=== PATIENT | female | born 1935 | race Hispanic/Latino ===

== ENCOUNTER 2018-07-30 09:53 | Inpatient (IN) | payer MEDICARE ==
[2018-07-30 10:17] VITALS: BMI 34.3
[2018-07-30] MEDS ORDERED: Enoxaparin 100 mg Syringe SC STA (10:20)
[2018-07-30] MEDS ORDERED: Nitroglycerin 2% Ointment Foilpak UD TOP STA (10:22)
--- NOTE | 2018-07-30 10:23 | ED PDOC ---
Arrival/HPI - General Time Seen by Provider: 07/30/18 10:11 Historian: Patient - History of Present Illness Narrative History of Present Illness (Text): 07/30/18 10:20 83 year old female, whose past medical history includes hypertension on amlodipine and aspirin, who presents to the Emergency department complaining of chest pain and mild shortness of breath x 1 day. Patient notes the chest pain has been steady since yesterday. Patient denies any back pain, dizziness, headache, diaphoresis, nausea, vomiting, diarrhea, or any other complaints. Time/Duration: Other (less than 1 day) Symptom Onset: Gradual Symptom Course: Unchanged Activities at Onset: Light Context: Home Associated Symptoms (Text): 07/30/18 11:38 Left-sided chest pain since last evening. Mild dyspnea. No diaphoresis. No nausea or vomiting. No dizziness or lightheadedness. She does not feel palpitations. No history of atrial fibrillation. Past Medical History - Provider Review Nursing Documentation Reviewed: Yes Family/Social History - Physician Review Nursing Documentation Reviewed: Yes Family/Social History: Unknown Family HX Smoking Status: Never Smoked Hx Alcohol Use: No Allergies/Home Meds Allergies/Adverse Reactions: Allergies No Known Allergies Allergy (Verified 02/02/15 13:55) Home Medications: Home Meds Medication Instructions Recorded Confirmed Aspirin 81 mg PO DAILY 02/02/15 02/02/15 amLODIPine [Norvasc] 2.5 mg PO DAILY 02/02/15 02/02/15 Review of Systems - Physician Review All systems were reviewed & negative as marked: Yes - Review of Systems Constitutional: Fatigue. absent: Fevers Respiratory: SOB. absent: Cough, Sputum, Wheezing Cardiovascular: Chest Pain. absent: Palpitations, Syncope Gastrointestinal: absent: Abdominal Pain, Diarrhea, Nausea, Vomiting Neurological: absent: Headache, Dizziness, Focal Weakness Endocrine: absent: Diaphoresis Physical Exam Vital Signs Reviewed: Yes Vital Signs Temp Pulse Resp BP Pulse Ox 07/30/18 10:16 98.8 F 100 H 18 149/82 95 Temperature: Afebrile Blood Pressure: Normal Pulse: Irregular Respiratory Rate: Normal Appearance: Positive for: Well-Appearing, Non-Toxic, Comfortable Pain Distress: None Mental Status: Positive for: Alert and Oriented X 3 - Systems Exam Head: Present: Atraumatic, Normocephalic Pupils: Present: PERRL Extroacular Muscles: Present: EOMI Conjunctiva: Present: Normal Mouth: Present: Moist Mucous Membranes Pharnyx: No: ERYTHEMA, EXUDATE, TONSILS ENLARGED Neck: Present: Normal Range of Motion Respiratory/Chest: Present: Clear to Auscultation, Good Air Exchange. No: Respiratory Distress Cardiovascular: Present: Irregular Rhythm (irregularly regular), Tachycardic Abdomen: No: Tenderness, Distention, Rebound, Guarding Upper Extremity: Present: Normal Inspection. No: Cyanosis, Edema Lower Extremity: Present: Normal Inspection. No: Edema Neurological: Present: GCS=15, CN II-XII Intact, Speech Normal, Motor Func Grossly Intact Skin: Present: Warm, Dry, Normal Color. No: Rashes Psychiatric: Present: Alert, Oriented x 3, Normal Insight, Normal Concentration Medical Decision Making ED Course and Treatment: 07/30/18 10:25 Impression: 83 year old female presents to the emergency department complaining of chest painand shortness of breath x yesterday. Plan: -- EKG -- Labs -- Cardiac ISO -- CXR -- Lovenox -- Ngl -- reassess and disposition -- Reassess and disposition Progress Notes: 07/30/18 11:02 CXR reviewed, shows: Impression: No Active Disease. 07/30/18 11:40 EKG shows atrial fibrillation rate approximately [address] and T- wave changes. 07/30/18 11:[address] Alcazar, who accepts admission to telemetry observation. 07/30/18 12:18 Case discussed with Josh Ravi, who will see pt in consult. - Scribe Statement The provider has reviewed the documentation as recorded by the Scribviolet Bowser All medical record entries made by the Scribe were at my direction and personally dictated by me. I have reviewed the chart and agree that the record accurately reflects my personal performance of the history, physical exam, medical decision making, and the department course for this patient. I have also personally directed, reviewed, and agree with the discharge instructions and disposition. Disposition/Present on Arrival - Present on Arrival Any Indicators Present on Arrival: No History of DVT/PE: No History of Uncontrolled Diabetes: No Urinary Catheter: No History of Decub. Ulcer: No - Disposition Have Diagnosis and Disposition been Completed?: Yes Diagnosis: Chest pain, Atrial fibrillation, Dyspnea Disposition: HOSPITALIZED Disposition Time: 11:41 Patient Plan: Observation, Telemetry Patient Problems: Current Active Problems Problem Status Onset Atrial fibrillation Acute Chest pain Acute Dyspnea Acute Condition: FAIR
[2018-07-30 10:50] LABS: BASO # 0.02 K/mm3 (0.0-2.0); BASO % 0.2 % (0.0-3.0); EOS # 0.1 (0.0-0.7); GRAN # 8.04 (1.4-6.5); GRAN % 70.1 % (50.0-68.0); HEMOGLOBIN 14.5 g/dL (12.0-16.0); LYMPH # 2.7 (1.2-3.4); LYMPH % 23.2 % (22.0-35.0); MEAN CORPUSCULAR HEMOGLOBIN 30.5 pg (25.0-35.0); MEAN CORPUSCULAR HGB CONC 33.1 g/dl (31.0-37.0); MEAN PLATELET VOLUME 9.2 fl (7.0-11.0); MONO # 0.6 (0.1-0.6); MONO % 5.5 % (1.0-6.0); RBC 4.76 10^6/uL (3.5-6.1); RED CELL DISTRIBUTION WIDTH 13.7 % (11.5-14.5); WHITE BLOOD COUNT 11.5 10^3/uL (4.5-11.0)
--- NOTE | 2018-07-30 10:55 | RAD ---
Date of service: 07/30/2018 HISTORY: cp COMPARISON: No prior. FINDINGS: LUNGS: No active pulmonary disease. PLEURA: No significant pleural effusion identified, no pneumothorax apparent. CARDIOVASCULAR: No aortic atherosclerotic calcification present. Mild cardiomegaly no pulmonary vascular congestion. OSSEOUS STRUCTURES: No significant abnormalities. VISUALIZED UPPER ABDOMEN: Normal. OTHER FINDINGS: None. IMPRESSION: No active disease.
[2018-07-30 10:59] LABS: INR 1.01; PARTIAL THROMBOPLASTIN TIME 29.5 Seconds (25.1-36.5); PROTHROMBIN TIME 11.6 SECONDS (9.4-12.5)
[2018-07-30 11:03] LABS: ALB/GLOB RATIO 1.5 (1.1-1.8); ALBUMIN 4.3 g/dL (3.0-4.8); ALT/SGPT 42 U/L (7-56); AST/SGOT 33 U/L (14-36); BLOOD UREA NITROGEN 10 mg/dL (7-21); CALCIUM 9.4 mg/dL (8.4-10.5); GFR NON-AFRICAN AMERICAN > 60
[2018-07-30 11:15] LABS: B-TYPE NATRIURETIC PEPTIDE 433 pg/mL (0-450); TROPONIN I < 0.01 ng/mL
--- NOTE | 2018-07-30 13:30 | CARD ---
APPROVED REPORT Date of service: 07/30/2018 EKG Measurement Heart [id number] <Conclusion> Atrial fibrillation with rapid ventricular response Nonspecific ST and T wave abnormality, probably digitalis effect Abnormal ECG
--- NOTE | 2018-07-30 15:03 | CP.PCM.HP ---
<Ilan Vaca - Last Filed: 07/30/18 18:02> History of Present Illness - History of Present Illness History of Present Illness: Medicine History and Physical for Hospitalist Service, Dr. Nikole Vaca DO PGY-1 This is a 83 y o female with PMhx HTN (on Norvasc therapy) who presents to the ED today c/o new-onset L-sided chest pain worsening since yesterday evening. De nies any inciting factors or hx of this occurring before. Notes nothing makes the chest pain better or worse. Did not take any pain medications at home or ASA for symptoms. Localizes pain to L side of chest without radiation to L arm or neck. Describes pain as sharp and constant. Notes associated mild shortness of breath worsened with exertion. Denies fever, chills, palpitations, n/v/d/c, abd pain, urinary complaints, leg claudication/edema, or other symptoms. 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 Hernandez Primary Teacher Private: Dr. Rodriguez Present on Admission - Present on Admission Any Indicators Present on Admission: No History of DVT/PE: No History of Uncontrolled Diabetes: No Urinary Catheter: No Decubitus Ulcer Present: No Review of Systems - Constitutional Constitutional: absent: Chills, Fatigue, Fever - Cardiovascular Cardiovascular: Chest Pain, Dyspnea on Exertion. absent: Edema, Palpitations - Respiratory Respiratory: absent: Cough, Hemoptysis, Wheezing, Chest Congestion - Gastrointestinal Gastrointestinal: absent: Abdominal Pain, Constipation, Diarrhea, Nausea, Vomiting Past Patient History - Infectious Disease Hx of Infectious Diseases: None - Past Social History Smoking Status: Never Smoked - CARDIAC Hx Cardiac Disorders: Yes Hx Hypertension: Yes - PULMONARY Hx Respiratory Disorders: No - NEUROLOGICAL Hx Neurological Disorder: No - HEENT Hx HEENT Problems: No - RENAL Hx Chronic Kidney Disease: No - ENDOCRINE/METABOLIC Hx Endocrine Disorders: No - HEMATOLOGICAL/ONCOLOGICAL Hx Blood Disorders: No - INTEGUMENTARY Hx Dermatological Problems: No - MUSCULOSKELETAL/RHEUMATOLOGICAL Hx Musculoskeletal Disorders: No - GASTROINTESTINAL Hx Gastrointestinal Disorders: No - GENITOURINARY/GYNECOLOGICAL Hx Genitourinary Disorders: No - PSYCHIATRIC Hx Psychophysiologic Disorder: No Hx Substance Use: No - SURGICAL HISTORY Hx Surgeries: No Meds Allergies/Adverse Reactions: Allergies Allergy/AdvReac Type Severity Reaction Status Date / Time No Known Allergies Allergy Verified 07/30/18 16:37 Physical Exam - Constitutional Appears: Non-toxic, No Acute Distress - Head Exam Head Exam: ATRAUMATIC, NORMOCEPHALIC - Eye Exam Eye Exam: EOMI, PERRL - ENT Exam ENT Exam: Mucous Membranes Moist - Respiratory Exam Respiratory Exam: Clear to Auscultation Bilateral, NORMAL BREATHING PATTERN. absent: Rales, Rhonchi, Wheezes - Cardiovascular Exam Cardiovascular Exam: Tachycardia, Irregular Rhythm, +S1, +S2. absent: Gallop, Rubs, Systolic Murmur - GI/Abdominal Exam GI & Abdominal Exam: Normal Bowel Sounds, Soft. absent: Distended, Guarding, Organomegaly, Tenderness - Extremities Exam Extremities exam: Positive for: full ROM, normal capillary refill, normal inspection, pedal pulses present. Negative for: calf tenderness, pedal edema - Neurological Exam Neurological exam: Alert, CN II-XII Intact, Oriented x3, Reflexes Normal - Skin Skin Exam: Dry, Intact, Normal Color, Warm Results - Vital Signs Recent Vital Signs: Last Vital Signs Temp 98.8 F 07/30/18 13:55 Pulse 100 H 07/30/18 13:55 Resp 18 07/30/18 13:55 BP 137/79 07/30/18 13:55 Pulse Ox 96 07/30/18 13:55 - Labs Result Diagrams: 07/30/18 10:42 07/30/18 10:42 Labs: Laboratory Results - last 24 hr 07/30/18 07/30/18 07/30/18 10:42 10:42 10:42 WBC 11.5 H RBC 4.76 Hgb 14.5 Hct 43.8 MCV 92.0 MCH 30.5 MCHC 33.1 RDW 13.7 Plt Count 219 MPV 9.2 Gran % 70.1 H Lymph % (Auto) 23.2 [place] % (Auto) 5.5 Eos % (Auto) 1.0 L Baso % (Auto) 0.2 Gran # 8.04 H Lymph # (Auto) 2.7 Moffat # (Auto) 0.6 Eos # (Auto) 0.1 Baso # (Auto) 0.02 PT 11.6 INR 1.01 APTT 29.5 Sodium 139 Potassium 4.3 Chloride 104 Carbon Dioxide 26 Anion Gap 14 BUN 10 Creatinine 0.7 Est GFR ( Amer) > 60 Est GFR (Non-Af Amer) > 60 Random Glucose 136 H Calcium 9.4 Magnesium 1.9 Total Bilirubin 0.7 AST 33 ALT 42 Alkaline Phosphatase 84 Lactate Dehydrogenase 473 Total Creatine Kinase 55 Troponin I < 0.01 NT-Pro-B Natriuret Pep 433 Total Protein 7.1 Albumin 4.3 Globulin 2.9 Albumin/Globulin Ratio 1.5 Assessment & Plan - Assessment and Plan (Free Text) Assessment: This is a 83 y o female with PMhx HTN (on Norvasc therapy) who presents to the ED today c/o new-onset L-sided chest pain worsening since yesterday evening. Found to be in new-onset atrial fibrillation with RVR. Plan: New-onset A-fib with RVR Admit to tele S/p Cardizem 10 mg IVP x1 Cardio consulted (Dr. Rodriguez), recs appreciated Echo pending EKG demonstrates irregular rhythm at [address], [address]-t wave changes appreciated CXR neg on admission Trop neg x1 BNP wnl, CK wnl C/w ASA daily HHD After discussion with pt and pt's family, they consent to initiation of NOACs for anticoagulation therapy. Start Eliquis 5 mg PO bid Hx HTN C/w home med Amlodipine 2.5 mg daily DVT ppx: Eliquis GI ppx: n/a Pt seen, examined with, and plan discussed with Dr. Agustin, attending marci valdez. Ilan Vaca DO PGY-1, External Auditor Pager #[phone] <Aashish Agustin - Last Filed: 08/01/18 17:16> Results - Vital Signs Recent Vital Signs: Last Vital Signs Temp 98 F 08/01/18 12:00 Pulse 72 08/01/18 13:39 Resp 18 08/01/18 12:00 BP 116/68 08/01/18 13:39 Pulse Ox 93 L 07/30/18 15:31 - Labs Result Diagrams: 08/01/18 06:00 08/01/18 06:00 Labs: Laboratory Results - last 24 hr 08/01/18 08/01/18 08/01/18 06:00 06:00 06:00 WBC 16.8 H D RBC 4.89 Hgb 14.9 Hct 44.1 MCV 90.2 MCH 30.5 MCHC 33.8 RDW 13.8 Plt Count 237 MPV 9.6 Gran % 76.3 H Lymph % (Auto) 16.0 L Moffat % (Auto) 7.0 H Eos % (Auto) 0.6 L Baso % (Auto) 0.1 Gran # 12.80 H Lymph # (Auto) 2.7 Moffat # (Auto) 1.2 H Eos # (Auto) 0.1 Baso # (Auto) 0.01 PT 14.5 H INR 1.26 APTT 30.0 Sodium 137 Potassium 3.7 Chloride 103 Carbon Dioxide 24 Anion Gap 14 BUN 16 Creatinine 0.7 Est GFR ( Amer) > 60 Est GFR (Non-Af Amer) > 60 Random Glucose 131 H Calcium 9.2 Phosphorus 3.9 Magnesium 1.9 Total Bilirubin 0.7 AST 32 ALT 31 Alkaline Phosphatase 84 Total Protein 7.0 Albumin 4.1 Globulin 2.9 Albumin/Globulin Ratio 1.4 Urine Color Urine Appearance Urine pH Ur Specific [place] Urine Protein Urine Glucose (UA) Urine Ketones Urine Blood Urine Nitrate Urine Bilirubin Urine Urobilinogen Ur Leukocyte Esterase Urine RBC Urine WBC Ur Epithelial Cells Amorphous Sediment Urine Bacteria Urine Other 08/01/18 11:45 WBC RBC Hgb Hct MCV MCH MCHC RDW Plt Count MPV Gran % Lymph % (Auto) Moffat % (Auto) Eos % (Auto) Baso % (Auto) Gran # Lymph # (Auto) Moffat # (Auto) Eos # (Auto) Baso # (Auto) PT INR APTT Sodium Potassium Chloride Carbon Dioxide Anion Gap BUN Creatinine Est GFR ( Amer) Est GFR (Non-Af Amer) Random Glucose Calcium Phosphorus Magnesium Total Bilirubin AST ALT Alkaline Phosphatase Total Protein Albumin Globulin Albumin/Globulin Ratio Urine Color Yellow Urine Appearance Clear Urine pH 6.0 Ur Specific [place] 1.020 Urine Protein Negative Urine Glucose (UA) Negative Urine Ketones Negative Urine Blood Negative Urine Nitrate Negative Urine Bilirubin Negative Urine Urobilinogen 0.2 Ur Leukocyte Esterase Moderate H Urine RBC 0 - 2 Urine WBC 20 - 25 H Ur Epithelial Cells 6 - 8 H Amorphous Sediment Few Urine Bacteria Many Urine Other [place] Attending/Attestation - Attestation I have personally seen and examined this patient.: Yes I have fully participated in the care of the patient.: Yes I have reviewed all pertinent clinical information: Yes Notes (Text): 83 y/o F with PMH of HTN presented with CP and SOB found to have new onset A.fib. with RVR. Will give cardizem 10 mg IV x1. And start pt on Cardizem PO CHADSVASC of 4. Discussed in detail with pt and son, the risk vs benefit of starting anticoagulation. Start pt on eliquis get cardio consult get 2D echo and TSH panel
--- NOTE | 2018-07-30 18:09 | CARD ---
APPROVED REPORT Date of service: 07/30/2018 EKG Measurement Heart [id number] <Conclusion> Atrial fibrillation with rapid ventricular response Nonspecific ST and T wave abnormality, probably digitalis effect Abnormal ECG
[2018-07-30] MEDS ORDERED: Influenza Vaccine 60 mcg/0.5 mL SYR (4YR UP) IM ONE (19:37)
[2018-07-30] MEDS ORDERED: Pneumococcal 23-Valent Vaccine IM ONE (19:37)
[2018-07-30 20:01] LABS: TROPONIN I < 0.01 ng/mL
--- NOTE | 2018-07-30 23:04 | CON ---
DATE: 07/30/2018 REASON FOR CONSULTATION: Cardiac evaluation, admitted with chest pain and AFib with rapid ventricular rate new onset. BRIEF CLINICAL HISTORY: This is an 83-year-old female with past medical history significant for hypertension on amlodipine and aspirin, being followed by Dr. Rodriguez and . , came to the emergency room with complaints of chest pain underneath the left breast with mild tenderness on the front of the chest with more tender and felt some palpitation and shortness of breath. The patient in the ER found to be AFib with rapid ventricular rate of 120. Only 10 mg of IV Cardizem was given in 2 hours and now the heart rate is 110. Denies any chest pain. Now upon deep palpation, there is some tenderness on the left side beneath the breast. Denies any dyspnea on exertion or chest pain on exertion or prior episode of chest pain. PAST MEDICAL HISTORY: Significant for hypertension on amlodipine. SOCIAL HISTORY: Denies smoking. Denies any history of alcohol abuse. PAST SURGICAL HISTORY: Nothing significant in the past. No documented history of coronary artery disease. CURRENT MEDICATIONS: The patient is on baby aspirin 81 mg daily and amlodipine 5 mg. PREVIOUS CARDIAC WORKUP: As follows; the patient had a stress test dated 02/02/2015, that revealed normal myocardial perfusion study with ejection fraction of 74%. echo was done Dr. Rodriguez's office a year ago and it was told okay. REVIEW OF SYSTEMS: As per HPI. PHYSICAL EXAMINATION VITAL SIGNS: Height of the patient 5 feet 4 inches, weight of the patient 200 pounds, body mass index 35 kg/m2. Temperature afebrile, heart rate 122, and blood pressure 137/79. HEENT: PERRLA. Extraocular muscles are intact. NECK: Supple. No carotid bruit or thyromegaly. CHEST: Clear to auscultation. HEART: S1 and S2, irregular. ABDOMEN: Soft. EXTREMITIES: Clubbing and cyanosis negative. LABORATORY DATA: EKG shows AFib with rapid rate of 120. Blood workup shows WBC 11.5, hemoglobin 14.5, hematocrit 43.8, and platelet count 219. Chemistry shows sodium 139, potassium 4.0, chloride 104, carbon dioxide of 26, anion gap of 14, BUN 10, creatinine 0.7, blood sugar 136, and troponin 0.01. IMPRESSION: An 83-year-old obese female with past medical history significant for hypertension admitted with some chest pain with tenderness, elevated WBC, and new onset of atrial fibrillation. Last stress test in 2014 was normal. RECOMMENDATIONS: We will load with amiodarone 400 p.o. t.i.d., start verapamil to control the heart rate p.r.n. verapamil 2.5 every 6 hours p.r.n. for heart rate more than 120. We will order echo and a stress test, followup serial CPK and troponin, doubt it is [place] because chest pain with tenderness, but given multiple risk factors of coronary artery disease, I suggest echo and stress test. We will follow with you. If the patient's stress test is negative, possibly discharge home, bring back the patient in two weeks as outpatient for CATARINO cardioversion in two weeks as an outpatient if the stress test remains negative or if stress test is positive, may consider cardiac catheterization on . We will follow with you. If stress test is abnormal, then we can hold Eliquis which started and we can do the cardiac cath on . We will follow with you. Further recommendation depending upon hospital course. We will get lipid profile, TSH, hemoglobin A1c, and also we will get one set of troponin now. She will need 2.5 verapamil every 6 hours p.r.n. for heart rate more than 130. As mentioned, further recommendation depending upon hospital course. We will get echo with stress test tomorrow, lipid profile, TSH, hemoglobin A1c and another set of troponin now. Thank you for providing us the opportunity in taking care of the patient, Flora Mayers. Explained to the patient and we will follow with you. Regulo Johnson MD
[2018-07-31 06:44] LABS: INR 1.14; PROTHROMBIN TIME 13.1 SECONDS (9.4-12.5)
[2018-07-31 06:55] LABS: LDL CHOLESTEROL 142 mg/dL (0-129)
[2018-07-31 07:02] LABS: BASO # 0.02 K/mm3 (0.0-2.0); BASO % 0.2 % (0.0-3.0); EOS % 0.2 % (1.5-5.0); GRAN # 8.68 (1.4-6.5); GRAN % 71.3 % (50.0-68.0); HEMOGLOBIN 14.5 g/dL (12.0-16.0); LYMPH # 2.4 (1.2-3.4); LYMPH % 19.5 % (22.0-35.0); MEAN CORPUSCULAR HEMOGLOBIN 29.7 pg (25.0-35.0); MEAN PLATELET VOLUME 9.6 fl (7.0-11.0); MONO # 1.1 (0.1-0.6); MONO % 8.8 % (1.0-6.0); RBC 4.89 10^6/uL (3.5-6.1); RED CELL DISTRIBUTION WIDTH 13.7 % (11.5-14.5); WHITE BLOOD COUNT 12.2 10^3/uL (4.5-11.0)
[2018-07-31 07:07] LABS: ALB/GLOB RATIO 1.5 (1.1-1.8); ALBUMIN 4.3 g/dL (3.0-4.8); ALT/SGPT 32 U/L (7-56); AST/SGOT 27 U/L (14-36); BLOOD UREA NITROGEN 9 mg/dL (7-21); CALCIUM 9.3 mg/dL (8.4-10.5); GFR NON-AFRICAN AMERICAN > 60; HDL CHOLESTEROL 33 mg/dL (29-60)
--- NOTE | 2018-07-31 08:14 | CP.PCM.PN ---
Subjective - Date & Time of Evaluation Date of Evaluation: 07/31/18 Time of Evaluation: 06:25 - Subjective Subjective: Awake, ambulating, alert, no distress Reason for consultation and follow up: Cardiac evaluation of chest pain Seen and examined by me and Dr. Rodriguez Objective - Vital Signs/Intake and Output Vital Signs (last 24 hours): Temp Pulse Resp BP Pulse Ox 97.9 F 102 H 21 132/87 93 L 07/31/18 06:00 07/31/18 06:00 07/31/18 06:00 07/31/18 06:00 07/30/18 15:31 Intake and Output: 07/31/18 07/31/18 06:59 18:59 Intake Total 420 Output Total 4 Balance 416 - Medications Medications: Current Medications Amiodarone HCl (Cordarone) 200 mg PO DAILY [facility] Amiodarone HCl (Cordarone) 400 mg PO TID [facility] Stop: 07/31/18 23:59 Last Admin: 07/30/18 17:12 Dose: Not Given Apixaban (Eliquis) 5 mg PO BID [facility]; Protocol Aspirin (Ecotrin) 81 mg PO DAILY [facility] Verapamil HCl (Calan Tab) 40 mg PO TID [facility] Last Admin: 07/30/18 17:18 Dose: 40 mg Verapamil HCl (Verapamil Inj) 2.5 mg IVP Q6H PRN PRN Reason: for heart rate >130 - Labs Labs: 07/31/18 06:00 07/31/18 06:00 PT 13.1 SECONDS (9.4-12.5) H 07/31/18 06:00 INR 1.14 07/31/18 06:00 APTT 26.0 Seconds (25.1-36.5) 07/31/18 06:00 - Constitutional Appears: Non-toxic, No Acute Distress - Head Exam Head Exam: NORMAL INSPECTION - Eye Exam Eye Exam: Normal appearance Pupil Exam: NORMAL ACCOMODATION - ENT Exam ENT Exam: Mucous Membranes Moist, Normal Exam - Respiratory Exam Respiratory Exam: Decreased Breath Sounds, Clear to Ausculation Bilateral, NORMAL BREATHING PATTERN - Cardiovascular Exam Cardiovascular Exam: Irregular Rhythm, +S1, +S2 Additional comments: Telemetry atrial fibrillation, 100's - GI/Abdominal Exam GI & Abdominal Exam: Soft, Normal Bowel Sounds - Extremities Exam Extremities Exam: Full ROM Additional comments: 1+ edema - Neurological Exam Neurological Exam: Alert, Awake, Oriented x3 - Psychiatric Exam Psychiatric exam: Normal Affect, Normal Mood - Skin Skin Exam: Dry, Normal Color, Warm Assessment and Plan - Assessment and Plan (Free Text) Assessment: An 83 year old female who came in to the ER due to chest pain. In the ER found to be in rapid atrial fibrillation. Cardizem was given. History of hypertension.Stress done 01/2015 was normal.Troponin normal. for echo and stress test today. Plan: Denies chest pain, OOB to chair For echo today to evaluate LV function For stress test today to rule out ischemia On Amiodarone 400 mg TID x 2 days then 200 mg daily, Eliquis 5 mg BID, ASA 81 mg daily, Verapamil 40 mg TID, PRN IV Verapamil. Controlled heart rate atrial fibrillation 90-100's Continue current treatment Continue current medications Will follow up Further recommendations during hospital course Plan and treatment discussed with Dr. Rodriguez
[2018-07-31] MEDS ORDERED: Aminophylline 25 mg/ml Inj ONE (09:28)
--- NOTE | 2018-07-31 13:14 | CP.PCM.PCO ---
Physician Communication Note - Physician Communication Note Physician Communication Note: Echo and stress test pending result
--- NOTE | 2018-07-31 14:39 | CP.PCM.PN ---
<Ilan Vaca - Last Filed: 07/31/18 14:45> Subjective - Date & Time of Evaluation Date of Evaluation: 07/31/18 Time of Evaluation: 07:15 - Subjective Subjective: Medicine Progress Note for Hospitalist Service, Dr. Nikole Vaca, DO PGY-1 Pt seen and examined at bedside this am. Denies any acute complaints, states chest pain has improved but localizes it to underneath her L breast. Denies feeling palpitations or skipped beats. Denies shortness of breath. No acute events reported overnight by staff. Denies headache, dizziness, n/v/d/c, abd pain, urinary complaints, or other symptoms. Objective - Vital Signs/Intake and Output Vital Signs (last 24 hours): Temp Pulse Resp BP Pulse Ox 97.6 F 103 H 19 144/74 93 L 07/31/18 12:00 07/31/18 14:16 07/31/18 12:00 07/31/18 14:16 07/30/18 15:31 Intake and Output: 07/31/18 07/31/18 06:59 18:59 Intake Total 420 Output Total 4 Balance 416 - Medications Medications: Current Medications Amiodarone HCl (Cordarone) 200 mg PO DAILY [facility] Amiodarone HCl (Cordarone) 400 mg PO TID [facility] Stop: 07/31/18 23:59 Last Admin: 07/31/18 14:16 Dose: 400 mg Apixaban (Eliquis) 5 mg PO BID [facility]; Protocol Last Admin: 07/31/18 12:23 Dose: 5 mg Aspirin (Ecotrin) 81 mg PO DAILY [facility] Last Admin: 07/31/18 12:23 Dose: 81 mg Atorvastatin Calcium (Lipitor) 20 mg PO DIN [facility] Verapamil HCl (Calan Tab) 40 mg PO TID [facility] Last Admin: 07/31/18 14:15 Dose: 40 mg Verapamil HCl (Verapamil Inj) 2.5 mg IVP Q6H PRN PRN Reason: for heart rate >130 - Labs Labs: 07/31/18 06:00 07/31/18 06:00 PT 13.1 SECONDS (9.4-12.5) H 07/31/18 06:00 INR 1.14 07/31/18 06:00 APTT 26.0 Seconds (25.1-36.5) 07/31/18 06:00 - Constitutional Appears: Non-toxic, No Acute Distress - Head Exam Head Exam: ATRAUMATIC, NORMOCEPHALIC - Eye Exam Eye Exam: EOMI, Normal appearance, PERRL - ENT Exam ENT Exam: Mucous Membranes Moist - Respiratory Exam Respiratory Exam: Clear to Ausculation Bilateral, NORMAL BREATHING PATTERN. absent: Rales, Rhonchi, Wheezes - Cardiovascular Exam Cardiovascular Exam: Irregular Rhythm, +S1, +S2. absent: Gallop, Rubs, Murmur - GI/Abdominal Exam GI & Abdominal Exam: Soft, Normal Bowel Sounds. absent: Distended, Guarding, Tenderness, Organomegaly, Rebound - Extremities Exam Extremities Exam: Full ROM, Normal Capillary Refill, Normal Inspection. absent: Calf Tenderness, Pedal Edema - Neurological Exam Neurological Exam: Alert, Awake, CN II-XII Intact, Oriented x3 - Psychiatric Exam Psychiatric exam: Normal Affect, Normal Mood - Skin Skin Exam: Dry, Intact, Normal Color, Warm Assessment and Plan - Assessment and Plan (Free Text) Assessment: This is a 83 y o female with PMhx HTN (on Norvasc therapy) who presented to the ED c/o new-onset L-sided chest pain worsening x1 day. Found to be in new-onset atrial fibrillation with RVR. Plan: New-onset A-fib with RVR Admit to tele S/p Cardizem 10 mg IVP x1 on admission C/w Amiodarone 200 mg daily C/w Verapamil 40 mg tid; Verapamil 2.5 mg IVP q6h prn HR > 120 Cardio consulted (Dr. Rodriguez), recs appreciated Echo done, f/u results Stress test done, f/u results EKG on admission demonstrates irregular rhythm at 105 bpm, no acute St-t wave changes appreciated Repeat EKG today demonstrates irregular rhythm at 90 bpm, prolonged QT CXR neg on admission Trop neg x3 BNP wnl, CK wnl TSH wnl C/w ASA daily HHD C/w Eliquis 5 mg PO bid PT eval pending Hx HTN C/w home med Amlodipine 2.5 mg daily DVT ppx: Eliquis GI ppx: n/a Pt seen, examined with, and plan discussed with Dr. Agustin, attending physician. Ilan Vaca DO PGY-1, [employer] Pager #[phone] <[email or web address] - Last Filed: 08/01/18 17:12> Objective - Vital Signs/Intake and Output Vital Signs (last 24 hours): Temp Pulse Resp BP Pulse Ox 98 F 72 18 116/68 93 L 08/01/18 12:00 08/01/18 13:39 08/01/18 12:00 08/01/18 13:39 07/30/18 15:31 Intake and Output: 08/01/18 08/01/18 06:59 18:59 Intake Total 240 Balance 240 - Medications Medications: Current Medications Amiodarone HCl (Cordarone) 200 mg PO DAILY [facility] Last Admin: 08/01/18 09:09 Dose: 200 mg Aspirin (Ecotrin) 81 mg PO DAILY [facility] Last Admin: 08/01/18 09:09 Dose: 81 mg Atorvastatin Calcium (Lipitor) 20 mg PO DIN [facility] Last Admin: 07/31/18 17:42 Dose: 20 mg Heparin Sodium/Sodium Chloride (Heparin 28960 Units/250ml 1/2 Normal Saline) 2 5,000 units in 250 mls @ 16.737 mls/hr IV .[id number] PRN; Protocol PRN Reason: ADJUST RATE PER PROTOCOL Last Admin: 08/01/18 11:41 Dose: 18 units/kg/hr, 16.737 mls/hr Ceftriaxone Sodium (Rocephin 1 Gram Ivpb) 1 gm in 100 mls @ 100 mls/hr IVPB DAILY [facility]; Protocol Pantoprazole Sodium (Protonix Ec Tab) 40 mg PO DAILY [facility] Verapamil HCl (Calan Tab) 40 mg PO TID [facility] Last Admin: 08/01/18 13:39 Dose: 40 mg Verapamil HCl (Verapamil Inj) 2.5 mg IVP Q6H PRN PRN Reason: for heart rate >130 - Labs Labs: 08/01/18 06:00 08/01/18 06:00 PT 14.5 SECONDS (9.4-12.5) H 08/01/18 06:00 INR 1.26 08/01/18 06:00 APTT 30.0 Seconds (25.1-36.5) 08/01/18 06:00 Attending/Attestation - Attestation I have personally seen and examined this patient.: Yes I have fully participated in the care of the patient.: Yes I have reviewed all pertinent clinical information, including history, physical exam and plan: Yes Notes (Text): 83 y/o F with PMH of HTN presented with CP and SOB found to have new onset A.fib. with RVR. Responded to IV cardizem in the ED. CHADSVASC of 4 Echo showed EF of 54% Cardio on board, c/w Amio and verapamil pt to get stress test f/u TSH panel c/w eliquis c/w ASA
--- NOTE | 2018-07-31 17:50 | CARD ---
APPROVED REPORT Date of service: 07/31/2018 EXAM: Two-dimensional and M-mode echocardiogram with Doppler and color Doppler. INDICATION Chest Pain LVFX 2D DIMENSIONS Left Atrium (2D)4.7 (1.6-4.0cm)IVSd1.3 (0.7-1.1cm) LVDd4.1 (3.9-5.9cm)LVOT Diameter2.0 (1.8-2.4cm) PWd1.2 (0.7-1.1cm)LVDs2.9 (2.5-4.0cm) FS (%) 27.6 %LVEF (%)54.1 (>50%) M-Mode DIMENSIONS Aortic Root2.90 (2.2-3.7cm)Aortic Cusp Exc.0.80 (1.5-2.0cm) Aortic Valve AoV Peak Paxmvnnc715.0cm/sAoV VTI52.2cmAO Peak GR.31mmHg LVOT Peak Uvbfokvb78.2cm/sLVOT VTI16.00cmAO Mean GR.16mmHg ERNESTINA (VMAX)0.07wi8AIP (VTI)0.04gn0MC P 1/2 Ajaw070dw Mitral Valve E/A ratio0.0 TDI E/Lateral E'0.0E/Medial E'0.0 Pulmonary Valve PV Peak Ojqgctal20.7cm/sPV Peak Grad.1mmHg Tricuspid Valve TR Peak Tncflvio193ef/sRAP [id number] Peak Gr.45mmHg [id number] LEFT VENTRICLE The left ventricle is normal size. There is mild concentric left ventricular hypertrophy. The left ventricular function is normal. The left ventricular ejection fraction is within the normal range. 54%. RIGHT VENTRICLE The right ventricle is normal size. The right ventricular systolic function is normal. ATRIA The left atrium is mildly dilated. The right atrium is Mildly Dilated. AORTIC VALVE Aortic Valve Shows Moderate Stenosis. Pr.Gr: 31mm Hg. There is trace aortic regurgitation. MITRAL VALVE Mitral Valve Leaflets Thickened but Opening is Normal. Mitral Annulus Calcified. Mitral regurgitation is mild. TRICUSPID VALVE The tricuspid valve is normal in structure. There is moderate tricuspid regurgitation. RVSP: 55 mm Hg. Moderate Pulm. Hypertension. PERICARDIAL EFFUSION There is no pericardial effusion. <Conclusion> The left ventricle is normal size. There is mild concentric left ventricular hypertrophy. The left ventricular function is normal. The left ventricular ejection fraction is within the normal range. 54%. The right ventricle is normal size. The right ventricular systolic function is normal. The left atrium is mildly dilated. The right atrium is Mildly Dilated. Aortic Valve Shows Moderate Stenosis. Pr.Gr: 31mm Hg. There is trace aortic regurgitation. Mitral Valve Leaflets Thickened but Opening is Normal. Mitral Annulus Calcified. Mild Mitral Regurge. The tricuspid valve is normal in structure. There is moderate tricuspid regurgitation. RVSP: 55 mm Hg. Moderate Pulm. Hypertension.
--- NOTE | 2018-07-31 19:12 | PN ---
DATE: 07/31/2018 LOCATION: Room 262, bed 1. Detailed note has been already written by Mercy Bridges. This is an additional note. The patient was admitted with chest pain and found to have rapid atrial fibrillation. The patient is chest pain-free now and atrial fibrillation heart rate has also decreased to moderate levels, and today, the patient is going to have an echo and a nuclear stress test, and further therapy will be depend on that results of echo and nuclear stress test. In the meantime, the patient is on Eliquis 5 mg b.i.d., aspirin 81 daily, amiodarone 400 t.i.d. and from tomorrow will be 200 mg daily. The patient is on verapamil 40 mg t.i.d., atorvastatin 20 daily, and we will continue the therapy. Regulo Rodriguez MD
--- NOTE | 2018-07-31 20:44 | CARD ---
APPROVED REPORT Date of service: 07/31/2018 EKG Measurement Heart [id number] <Conclusion> Atrial fibrillation Prolonged QT Abnormal ECG
--- NOTE | 2018-07-31 21:36 | CARD ---
APPROVED REPORT Date of service: 07/31/2018 Protocol: LEXISCAN Test Type: Lexiscan Sestamibi Stress Test Attending Physician: Dr. Regulo Rodriguez Referring Physician: Dr. Regulo Gary Test Indications: Chest Pain Height:5 ft 4 in Weight:200lbs Medications: cordarone, eliquis, aspirin verapamil, calan Medical History: 83 year old female with h/o htn, high cholesterol and back pain Target HR: 135 bpm Resting ECG: Atrial Fibrillation Moderate Rate. Resting Heart Rate: 90 bpm Resting Blood Pressure: 128/74mmHg Submaximum (85%): 115 bpm PROCEDURE Pharmacologic stress testing was performed using 0.4mg per 5ml of regadenoson given intravenously over 7-10 seconds. POST EXERCISE Reason for Termination: Protocol completed Target HR: No Max HR: 92 bpm 83% of Maximum Predicted HR: 135 bpm Exercise duration: 00:30 min:sec, 0 Stage Exercise capacity: 1.0METs Max Blood Pressure: 128/74mmHg Blood Pressure response to exercise: normal resting BP - appropriate response Heart Rate response to exercise: appropriate Chest Pain: No, none Angina index: 0 Arrhythmia: Yes, Atrial Fibrillation as on Resting EKG. ST Change: No, none Deviation: 0 mm INTERPRETATION Stress EKG Conclusion: IV LEXISCAN NUCLEAR STRESS TEST NEGATIVE FOR CHEST PAIN AN D NEGATIVE FOR ST-T CHANGES. NUCLEAR SCAN REPORT PENDING. Signed by Regulo Rodriguez Electronically Approved: 07/31/2018 13:41:33 EXAM: Myocardial Perfusion REST/STRESS Stress Test Type: Pharmacologic Imaging Protocol The imaging protocol used to acquire images was Rest Tc-99m/stress Tc-99m 1 day Rest Spect myocardial perfusion imaging was performed in supine position 65 minutes following the injection of 10.8 mCi of Tc-99 Myoview. At peak stress, the patient was injected intravenously with 30.7mCi of Tc-99 tetrofosmin after an infusion time of 0 minutes and 10 seconds. Gated Stress Spect was performed 80 minutes after intravenous Tc-99 Myoview injection. The images were gated to evaluate regional wall motion and calculate ventricular ejection fraction.Images were reconstructed using backfilter projection method in short horizontal and verticle long axis. Spect slices were generated. LV Perfusion The quality of the study is good. The left ventricle is normal in size. The right ventricle is unremarkable. The lung uptake is normal. The distribution of tracer reveals an area of moderately decreased perfusion involving mid to basal anterior wall on the stress study. The remainder of the LV myocardium is unremarkable. The rest myocardial perfusion study shows improvement of the defect. Wall Motion Wall motion study shows good contractility of the left ventricle. LVEF = 71%. Conclusion 1. Probably abnormal SPECT myocardial perfusion study. 2. Reversible, anterior defect is suspicious of ischemia. 3. Normal gated wall motion and thickening of the left ventricle. 4. In comparison with the last study of 02/02/2015, the defect appears new.
[2018-08-01 06:34] LABS: BASO # 0.01 K/mm3 (0.0-2.0); BASO % 0.1 % (0.0-3.0); EOS # 0.1 (0.0-0.7); EOS % 0.6 % (1.5-5.0); GRAN # 12.8 (1.4-6.5); GRAN % 76.3 % (50.0-68.0); HEMOGLOBIN 14.9 g/dL (12.0-16.0); LYMPH # 2.7 (1.2-3.4); MEAN CELL VOLUME 90.2 fl (80.0-105.0); MEAN CORPUSCULAR HEMOGLOBIN 30.5 pg (25.0-35.0); MEAN CORPUSCULAR HGB CONC 33.8 g/dl (31.0-37.0); MEAN PLATELET VOLUME 9.6 fl (7.0-11.0); MONO # 1.2 (0.1-0.6); RBC 4.89 10^6/uL (3.5-6.1); RED CELL DISTRIBUTION WIDTH 13.8 % (11.5-14.5); WHITE BLOOD COUNT 16.8 10^3/uL (4.5-11.0)
[2018-08-01 06:36] LABS: INR 1.26; PROTHROMBIN TIME 14.5 SECONDS (9.4-12.5)
[2018-08-01 07:21] LABS: ALB/GLOB RATIO 1.4 (1.1-1.8); ALBUMIN 4.1 g/dL (3.0-4.8); ALT/SGPT 31 U/L (7-56); AST/SGOT 32 U/L (14-36); BLOOD UREA NITROGEN 16 mg/dL (7-21); CALCIUM 9.2 mg/dL (8.4-10.5); GFR NON-AFRICAN AMERICAN > 60
--- NOTE | 2018-08-01 07:35 | CP.PCM.PN ---
Subjective - Date & Time of Evaluation Date of Evaluation: 08/01/18 Time of Evaluation: 06:20 - Subjective Subjective: OOB to chair, awake, alert, no distress Reason for consultation and follow up: Cardiac evaluation of chest pain Seen and examined by me and Dr. Rodriguez Objective - Vital Signs/Intake and Output Vital Signs (last 24 hours): Temp Pulse Resp BP Pulse Ox 98.8 F 100 H 20 149/82 93 L 08/01/18 06:00 08/01/18 06:00 08/01/18 06:00 08/01/18 06:00 07/30/18 15:31 Intake and Output: 08/01/18 08/01/18 06:59 18:59 Intake Total 240 Balance 240 - Medications Medications: Current Medications Amiodarone HCl (Cordarone) 200 mg PO DAILY [facility] Apixaban (Eliquis) 5 mg PO BID [facility]; Protocol Last Admin: 07/31/18 17:42 Dose: 5 mg Aspirin (Ecotrin) 81 mg PO DAILY [facility] Last Admin: 07/31/18 12:23 Dose: 81 mg Atorvastatin Calcium (Lipitor) 20 mg PO DIN [facility] Last Admin: 07/31/18 17:42 Dose: 20 mg Verapamil HCl (Calan Tab) 40 mg PO TID [facility] Last Admin: 07/31/18 17:43 Dose: 40 mg Verapamil HCl (Verapamil Inj) 2.5 mg IVP Q6H PRN PRN Reason: for heart rate >130 - Labs Labs: 08/01/18 06:00 08/01/18 06:00 PT 14.5 SECONDS (9.4-12.5) H 08/01/18 06:00 INR 1.26 08/01/18 06:00 APTT 30.0 Seconds (25.1-36.5) 08/01/18 06:00 - Constitutional Appears: Non-toxic, No Acute Distress - Head Exam Head Exam: NORMAL INSPECTION, NORMOCEPHALIC - Eye Exam Eye Exam: Normal appearance Pupil Exam: NORMAL ACCOMODATION - ENT Exam ENT Exam: Mucous Membranes Moist - Respiratory Exam Respiratory Exam: Clear to Ausculation Bilateral, NORMAL BREATHING PATTERN - Cardiovascular Exam Cardiovascular Exam: Irregular Rhythm, +S1, +S2 Additional comments: Telemetry atrial fibrillation 70's - GI/Abdominal Exam GI & Abdominal Exam: Soft, Normal Bowel Sounds - Extremities Exam Extremities Exam: Full ROM Additional comments: 1+ edema - Neurological Exam Neurological Exam: Alert, Awake, Oriented x3 - Psychiatric Exam Psychiatric exam: Normal Affect, Normal Mood - Skin Skin Exam: Dry, Normal Color, Warm Assessment and Plan - Assessment and Plan (Free Text) Assessment: An 83 year old female who came in to the ER due to chest pain. In the ER found to be in rapid atrial fibrillation. Cardizem was given. History of hypertension.Stress done 01/2015 was normal.Troponin normal. Echo and stress test done. No distress. OOB to chair. Plan: OOB to chair, denies chest pain Echo done and showed mild concentric hyperthrophy, LVEF 54%, aortic valve shows moderate stenosis, aortic gradient 31mmHg, trace AR, mild MR, moderate TR, RVSP 55mmHg, moderate pulmonary hypertension. Stress test done- showed reversible anterior defect suspicious of ischemia, LVEF 71% Compared to last study 02/02/2015, the defect appears to be new. Will schedule for cardiac cath tomorrow Will hold Eliquis On Amiodarone 400 mg TID x 2 days then 200 mg daily, Eliquis 5 mg BID, ASA 81 mg daily, Verapamil 40 mg TID, PRN IV Verapamil. Controlled heart rate atrial fibrillation 70-100's Continue current treatment Continue current medications Will follow up Plan and treatment discussed with Dr. Rodriguez
--- NOTE | 2018-08-01 09:11 | CP.PCM.PN ---
<Ilan Vaca - Last Filed: 08/01/18 12:04> Subjective - Date & Time of Evaluation Date of Evaluation: 08/01/18 Time of Evaluation: 07:15 - Subjective Subjective: Medicine Progress Note for Hospitalist Service, Dr. Nikole Vaca, DO PGY-1 Pt seen and examined at bedside. Denies any acute complaints, resting comfortably in chair out of bed. No acute events reported overnight by staff. Denies headache, fever, chills, chest pain, sob, n/v/d/c, abd pain, leg edema, urinary complaints, or other symptoms. Objective - Vital Signs/Intake and Output Vital Signs (last 24 hours): Temp Pulse Resp BP Pulse Ox 98.8 F 92 H 20 123/65 93 L 08/01/18 06:00 08/01/18 09:09 08/01/18 06:00 08/01/18 09:09 07/30/18 15:31 Intake and Output: 08/01/18 08/01/18 06:59 18:59 Intake Total 240 Balance 240 - Medications Medications: Current Medications Amiodarone HCl (Cordarone) 200 mg PO DAILY [facility] Last Admin: 08/01/18 09:09 Dose: 200 mg Aspirin (Ecotrin) 81 mg PO DAILY [facility] Last Admin: 08/01/18 09:09 Dose: 81 mg Atorvastatin Calcium (Lipitor) 20 mg PO DIN [facility] Last Admin: 07/31/18 17:42 Dose: 20 mg Verapamil HCl (Calan Tab) 40 mg PO TID [facility] Last Admin: 08/01/18 09:09 Dose: 40 mg Verapamil HCl (Verapamil Inj) 2.5 mg IVP Q6H PRN PRN Reason: for heart rate >130 - Labs Labs: 08/01/18 06:00 08/01/18 06:00 PT 14.5 SECONDS (9.4-12.5) H 08/01/18 06:00 INR 1.26 08/01/18 06:00 APTT 30.0 Seconds (25.1-36.5) 08/01/18 06:00 - Constitutional Appears: Non-toxic, No Acute Distress - Head Exam Head Exam: ATRAUMATIC, NORMOCEPHALIC - Eye Exam Eye Exam: EOMI, Normal appearance, PERRL - ENT Exam ENT Exam: Mucous Membranes Moist - Respiratory Exam Respiratory Exam: Clear to Ausculation Bilateral, NORMAL BREATHING PATTERN. absent: Rales, Rhonchi, Wheezes - Cardiovascular Exam Cardiovascular Exam: Irregular Rhythm, +S1, +S2. absent: Gallop, Rubs, Murmur - GI/Abdominal Exam GI & Abdominal Exam: Soft, Normal Bowel Sounds. absent: Distended, Guarding, Tenderness, Organomegaly - Extremities Exam Extremities Exam: Full ROM, Normal Capillary Refill, Normal Inspection. absent: Calf Tenderness, Pedal Edema - Neurological Exam Neurological Exam: Alert, Awake, CN II-XII Intact, Oriented x3 - Psychiatric Exam Psychiatric exam: Normal Affect, Normal Mood - Skin Skin Exam: Dry, Intact, Normal Color, Warm Assessment and Plan - Assessment and Plan (Free Text) Assessment: This is a 83 y o female with PMhx HTN (on Norvasc therapy) who presented to the ED c/o new-onset L-sided chest pain worsening x1 day. Found to be in new-onset atrial fibrillation with RVR. Plan: New-onset A-fib with RVR S/p Cardizem 10 mg IVP x1 on admission C/w Amiodarone 200 mg daily C/w Verapamil 40 mg tid; Verapamil 2.5 mg IVP q6h prn HR > 120 Cardio consulted (Dr. Rodriguez), recs appreciated Echo 07/31: mild concentric LVH, EF 54%, L and R atria mildly dilated, aortic valve shows moderate stenosis, trace aortic regurgitation, mitral valve leaflets thickened, mild mitral regurgitation, mod tricuspid regurgitation, mod pulm HTN Stress test 07/31: area of moderate decreased perfusion involving mid to basal anterior wall To go for cardiac cath tomorrow as per Dr. Rodriguez EKG on admission demonstrates irregular rhythm at [address], [address]-t wave changes appreciated Repeat EKG 07/31 demonstrates irregular rhythm at 90 bpm, prolonged QT CXR neg on admission Trop neg x3 BNP wnl, CK wnl TSH wnl C/w ASA daily HHD Eliquis 5 mg PO bid held for cardiac cath procedure; started pt on Heparin drip PT eval pending Hx HTN C/w home med Amlodipine 2.5 mg daily DVT ppx: Heparin drip GI ppx: n/a Pt seen, examined with, and plan discussed with Dr. Agustin, attending physician. Ilan Vaca DO PGY-1, [employer] Pager #[phone] <Aashish Agustin - Last Filed: 08/01/18 17:11> Objective - Vital Signs/Intake and Output Vital Signs (last 24 hours): Temp Pulse Resp BP Pulse Ox 98 F 72 18 116/68 93 L 08/01/18 12:00 08/01/18 13:39 08/01/18 12:00 08/01/18 13:39 07/30/18 15:31 Intake and Output: 08/01/18 08/01/18 06:59 18:59 Intake Total 240 Balance 240 - Medications Medications: Current Medications Amiodarone HCl (Cordarone) 200 mg PO DAILY [facility] Last Admin: 08/01/18 09:09 Dose: 200 mg Aspirin (Ecotrin) 81 mg PO DAILY [facility] Last Admin: 08/01/18 09:09 Dose: 81 mg Atorvastatin Calcium (Lipitor) 20 mg PO DIN [facility] Last Admin: 07/31/18 17:42 Dose: 20 mg Heparin Sodium/Sodium Chloride (Heparin 34362 Units/250ml 1/2 Normal Saline) 25,000 units in 250 mls @ 16.737 mls/hr IV .[id number] PRN; Protocol PRN Reason: ADJUST RATE PER PROTOCOL Last Admin: 08/01/18 11:41 Dose: 18 units/kg/hr, 16.737 mls/hr Ceftriaxone Sodium (Rocephin 1 Gram Ivpb) 1 gm in 100 mls @ 100 mls/hr IVPB DAILY [facility]; Protocol Pantoprazole Sodium (Protonix Ec Tab) 40 mg PO DAILY [facility] Verapamil HCl (Calan Tab) 40 mg PO TID [facility] Last Admin: 08/01/18 13:39 Dose: 40 mg Verapamil HCl (Verapamil Inj) 2.5 mg IVP Q6H PRN PRN Reason: for heart rate >130 - Labs Labs: 08/01/18 06:00 08/01/18 06:00 PT 14.5 SECONDS (9.4-12.5) H 08/01/18 06:00 INR 1.26 08/01/18 06:00 APTT 30.0 Seconds (25.1-36.5) 08/01/18 06:00 Attending/Attestation - Attestation I have personally seen and examined this patient.: Yes I have fully participated in the care of the patient.: Yes I have reviewed all pertinent clinical information, including history, physical exam and plan: Yes Notes (Text): 83 y/o F with PMH of HTN presented with CP and SOB found to have new onset A.fib. with RVR. Responded to IV cardizem in the ED. CHADSVASC of 4 +ve stress test. Echo showed EF of 54% Cardio on board, c/w Amio and verapamil will hold eliquis and start pt on heparin gtt for now until after cardiac cath c/w ASA
[2018-08-01] MEDS: Heparin25000 units/250ml 1/2NS 25,000 UNITS/250 ML BAG IV PRN (11:41)
--- NOTE | 2018-08-01 12:54 | CP.PCM.PCO ---
Physician Communication Note - Physician Communication Note Physician Communication Note: cardiac cath Thurs. Eliquis is on hold, abnormal stress test, leukocytosis
[2018-08-01 13:00] LABS: URINE BILIRUBIN NEGATIVE (NEGATIVE); URINE BLOOD NEGATIVE (NEGATIVE); URINE GLUCOSE (UA) NEGATIVE (NEGATIVE); URINE LEUKOCYTE ESTERASE MODERATE Leu/uL (NEGATIVE); URINE PROTEIN NEGATIVE mg/dL (<30 mg/dL); URINE UROBILINOGEN 0.2 E.U./dL (<1 E.U./dL)
[2018-08-01 13:01] LABS: URINE APPEARANCE CLEAR (CLEAR); URINE COLOR YELLOW (YELLOW)
[2018-08-01 13:04] LABS: URINE AMORPHOUS SEDIMENT FEW /hpf; URINE BACTERIA MANY /hpf; URINE RBC 0 - 2 /hpf (0-2); URINE WBC 20 - 25 /hpf (0-6)
[2018-08-01] MEDS: Pantoprazole 40 mg EC Tab PO SCH (17:16)
[2018-08-01] MEDS: cefTRIAXone 1 gm 1 GM/100 ML BAG IVPB SCH (17:17)
--- NOTE | 2018-08-01 19:01 | PN ---
DATE: 08/01/2018 ADDITIONAL PROGRESS NOTE LOCATION: The patient is in room 262, bed 1. Detailed note has been already written by Mercy Bridges. This is an additional note. The patient was admitted with chest pain and atrial fibrillation with rapid rate. The patient's stress test showed ischemia, so the patient is scheduled for cardiac catheterization tomorrow. I discussed the case with son and the patient and they both agreed for cardiac catheterization. We will give loading dose of Plavix 300 mg p.o. now and we will hold heparin drip starting 4 a.m. tomorrow in preparation of cardiac catheterization. We will also keep patient n.p.o. and we will follow. Regulo Rodriguez MD
[2018-08-02] MEDS: Heparin25000 units/250ml 1/2NS 25,000 UNITS/250 ML BAG IV PRN (03:14)
[2018-08-02 06:34] VITALS: O2SAT 95
[2018-08-02 06:43] LABS: BASO # 0.02 K/mm3 (0.0-2.0); BASO % 0.2 % (0.0-3.0); EOS # 0.2 (0.0-0.7); GRAN # 5.11 (1.4-6.5); HEMOGLOBIN 14.2 g/dL (12.0-16.0); LYMPH # 3.1 (1.2-3.4); LYMPH % 33.5 % (22.0-35.0); MEAN CELL VOLUME 90.8 fl (80.0-105.0); MEAN CORPUSCULAR HEMOGLOBIN 29.7 pg (25.0-35.0); MEAN CORPUSCULAR HGB CONC 32.7 g/dl (31.0-37.0); MEAN PLATELET VOLUME 9.8 fl (7.0-11.0); MONO # 0.9 (0.1-0.6); MONO % 9.3 % (1.0-6.0); RBC 4.78 10^6/uL (3.5-6.1); RED CELL DISTRIBUTION WIDTH 13.9 % (11.5-14.5); WHITE BLOOD COUNT 9.3 10^3/uL (4.5-11.0)
[2018-08-02 06:46] LABS: INR 1.05; PARTIAL THROMBOPLASTIN TIME 38.1 Seconds (25.1-36.5); PROTHROMBIN TIME 12.1 SECONDS (9.4-12.5)
[2018-08-02] MEDS ORDERED: Lidocaine 2% Inj (20ml) ONE (07:02)
[2018-08-02] MEDS ORDERED: Verapamil 2 ML ONE (07:02)
[2018-08-02 07:03] LABS: ALB/GLOB RATIO 1.4 (1.1-1.8); ALBUMIN 4.2 g/dL (3.0-4.8); ALT/SGPT 40 U/L (7-56); AST/SGOT 37 U/L (14-36); BLOOD UREA NITROGEN 16 mg/dL (7-21); CALCIUM 9.4 mg/dL (8.4-10.5); GFR NON-AFRICAN AMERICAN > 60
[2018-08-02] MEDS ORDERED: Heparin 2,000 ML IV ONE (07:03)
[2018-08-02] MEDS ORDERED: Iohexol 350mgl/ml 50 ML ONE ×2 (07:03→08:30)
[2018-08-02] MEDS ORDERED: Iodixanol 320 MG/ML 100 ML BOTTLE IV ONE (07:03)
[2018-08-02] MEDS ORDERED: Iodixanol 320 MG/ML 200 ML BOTTLE IV ONE (07:03)
[2018-08-02] MEDS ORDERED: Nitroglycerin 50mg in D5W 0 MG/0 ML BOTTLE IV ONE (07:04)
--- NOTE | 2018-08-02 07:29 | CP.PCM.PN ---
Subjective - Date & Time of Evaluation Date of Evaluation: 08/02/18 Time of Evaluation: 07:00 - Subjective Subjective: Awake, alert, no distress, for cardiac cath today Reason for consultation and follow up: Cardiac evaluation of chest pain Seen and examined by me and Dr. Johnson Objective - Vital Signs/Intake and Output Vital Signs (last 24 hours): Temp Pulse Resp BP Pulse Ox 97.8 F 92 H 20 142/85 95 08/02/18 06:00 08/02/18 06:00 08/02/18 06:00 08/02/18 06:00 08/02/18 06:00 Intake and Output: 08/02/18 08/02/18 06:59 18:59 Intake Total 1421 Balance 1421 - Medications Medications: Current Medications Amiodarone HCl (Cordarone) 200 mg PO DAILY [facility] Last Admin: 08/01/18 09:09 Dose: 200 mg Aspirin (Ecotrin) 81 mg PO DAILY [facility] Last Admin: 08/02/18 06:36 Dose: 81 mg Atorvastatin Calcium (Lipitor) 20 mg PO DIN [facility] Last Admin: 08/01/18 17:16 Dose: 20 mg Heparin Sodium/Sodium Chloride (Heparin 42731 Units/250ml 1/2 Normal Saline) 25,000 units in 250 mls @ 16.737 mls/hr IV .[id number] PRN; Protocol PRN Reason: ADJUST RATE PER PROTOCOL Last Titration: 08/02/18 03:34 Dose: 0 units/kg/hr, 0 mls/hr Ceftriaxone Sodium (Rocephin 1 Gram Ivpb) 1 gm in 100 mls @ 100 mls/hr IVPB DAILY [facility]; Protocol Last Admin: 08/01/18 17:17 Dose: 100 mls/hr Pantoprazole Sodium (Protonix Ec Tab) 40 mg PO DAILY [facility] Last Admin: 08/01/18 17:16 Dose: 40 mg Verapamil HCl (Calan Tab) 40 mg PO TID [facility] Last Admin: 08/01/18 17:16 Dose: 40 mg Verapamil HCl (Verapamil Inj) 2.5 mg IVP Q6H PRN PRN Reason: for heart rate >130 - Labs Labs: 08/02/18 06:00 08/02/18 06:00 PT 12.1 SECONDS (9.4-12.5) 08/02/18 06:00 INR 1.05 08/02/18 06:00 APTT 38.1 Seconds (25.1-36.5) H 08/02/18 06:00 - Constitutional Appears: Non-toxic, No Acute Distress - Head Exam Head Exam: NORMAL INSPECTION, NORMOCEPHALIC - Eye Exam Eye Exam: Normal appearance Pupil Exam: NORMAL ACCOMODATION - ENT Exam ENT Exam: Mucous Membranes Moist - Respiratory Exam Respiratory Exam: Decreased Breath Sounds, NORMAL BREATHING PATTERN - Cardiovascular Exam Cardiovascular Exam: Irregular Rhythm, +S1, +S2 Additional comments: Afib 70's telemetry - GI/Abdominal Exam GI & Abdominal Exam: Soft, Normal Bowel Sounds - Extremities Exam Extremities Exam: Full ROM Additional comments: 1+edema - Neurological Exam Neurological Exam: Alert, Awake, Oriented x3 - Psychiatric Exam Psychiatric exam: Normal Affect, Normal Mood - Skin Skin Exam: Dry, Normal Color, Warm Assessment and Plan - Assessment and Plan (Free Text) Assessment: An 83 year old female who came in to the ER due to chest pain. In the ER found to be in rapid atrial fibrillation. Cardizem was given. History of hypertension.Stress done 01/2015 was normal.Troponin normal. Echo and stress test done. Echo done and showed mild concentric hyperthrophy, LVEF 54%,aortic valve shows moderate stenosis, aortic gradient 31mmHg, trace AR, mild MR, moderate TR, RVSP 55mmHg, moderate pulmonary hypertension. Stress test done- showed reversible anterior defect suspicious of ischemia, LVEF 71% Compared to last study 02/02/2015, the defect appears to be new. For cardiac cath today. Plan: Awake, no distress Scheduled for cardiac catheterization today Plavix pre cath given Held Winifred On Amiodarone 400 mg TID x 2 days then 200 mg daily, Eliquis 5 mg BID, ASA 81 mg daily, Verapamil 40 mg TID, PRN IV Verapamil. Controlled heart rate atrial fibrillation 70's Continue current treatment Continue current medications Will follow up Further recommendations after cardiac cath Plan and treatment discussed with Dr. Johnson
[2018-08-02] MEDS ORDERED: Midazolam 2 MG/2 ML VIAL ONE ×2 (07:31→08:29)
[2018-08-02] MEDS ORDERED: Eptifibatide 20 mg/10mL Inj IVP ONE (08:09)
[2018-08-02] MEDS ORDERED: Sodium Chloride 0.9% 1,000 ML IV SCH (09:00)
--- NOTE | 2018-08-02 09:42 | CPOSTOP ---
DATE: 08/02/2018 CARDIOVASCULAR LAB POSTPROCEDURE NOTE PHYSICIAN: Dr. Lola Johnson. SLUBBER FRAME CHANGER: Kerrie accessibility lift technician. TYPE OF ANESTHESIA: Moderate conscious sedation. Total 3 mg of Versed and 100 of fentanyl given periodically. Started at 1 mg of Versed and 50 of fentanyl. PRE-PROCEDURE DIAGNOSES: Unstable angina, chest pain and abnormal stress test. PROCEDURE PERFORMED: 1. Complete left heart catheterization. 2. Attempted PTCA of RCA, unsuccessful. FINDINGS: Nondominant right 100% with a bridge collateral unable to cross. FINAL DIAGNOSIS: Single vessel coronary artery disease. POST PROCEDURE CONDITION: The patient condition is stable. VASCULAR ACCESS: Left radial for cardiac catheterization and attempted PTCA from right femoral. CLOSURE DEVICE: TR-band to the left radial and Angio-Seal to right femoral. TOTAL RADIATION DOSE: 9621.9 milligray unit. TOTAL FLUORO TIME: 16.4 minutes. Regulo Johnson MD
[2018-08-02] MEDS: Pantoprazole 40 mg EC Tab PO SCH (10:31)
[2018-08-02] MEDS: cefTRIAXone 1 gm 1 GM/100 ML BAG IVPB SCH (11:57)
[2018-08-02] MEDS ORDERED: Bacitracin 500 Units/gm Oint Foilpak UD ONE (14:05)
[2018-08-02 14:24] LABS: BASO # 0.03 K/mm3 (0.0-2.0); BASO % 0.3 % (0.0-3.0); EOS # 0.2 (0.0-0.7); EOS % 1.6 % (1.5-5.0); GRAN # 7.4 (1.4-6.5); GRAN % 68.2 % (50.0-68.0); HEMOGLOBIN 14.1 g/dL (12.0-16.0); LYMPH # 2.5 (1.2-3.4); LYMPH % 22.9 % (22.0-35.0); MEAN CELL VOLUME 90.6 fl (80.0-105.0); MEAN CORPUSCULAR HEMOGLOBIN 30.1 pg (25.0-35.0); MEAN CORPUSCULAR HGB CONC 33.2 g/dl (31.0-37.0); MEAN PLATELET VOLUME 9.2 fl (7.0-11.0); MONO # 0.8 (0.1-0.6); RBC 4.69 10^6/uL (3.5-6.1); RED CELL DISTRIBUTION WIDTH 13.8 % (11.5-14.5); WHITE BLOOD COUNT 10.8 10^3/uL (4.5-11.0)
[2018-08-02 14:34] LABS: BLOOD UREA NITROGEN 13 mg/dL (7-21); CALCIUM 8.7 mg/dL (8.4-10.5); GFR NON-AFRICAN AMERICAN > 60
--- NOTE | 2018-08-02 16:06 | CARD ---
APPROVED REPORT Date of service: 08/02/2018 Procedure(s) performed: Left Heart Catheterization PTCA with Stenting of RCA Attempted ... Unsuccessful ( VASCULAR TECH). HISTORY The patient is a 83 year-old female with a history of : peripheral vascular disease, hypertension , dyslipidemia , admitted with chest pian, new onset of A fib with RVR and abnormal stress test, anteroseptal ischemia.. INDICATION The indication(s) include : positive stress test, palpitations, chest pain, arrhythmia, atrial fibrillation, dyspnea. CASE TECHNIQUE The patient was brought urgently to the Cardiac Catheterization Laboratory in a fasting state and was prepped and draped in a sterile manner. The left wrist was infiltrated with 2% Lidocaine subcutaneous anesthesia. A sheath was inserted into the left radial artery without difficulty. Coronary angiography was performed using coronary diagnostic catheters. The left coronary system was accessed and visualized with a Diagnostic ,5F JL 4 CATH DXT 100 CM catheter. The right coronary system was accessed and visualized with a Diagnostic , 5F JR 4 CATH DXT 100 CM catheter. The left ventricle was accessed and visualized with a 5F PIGTAIL 145 CATH DXT 110 CM catheter. Left ventricular/Aortic Valve gradient assessed on pullback. Left ventriculogram was performed in BAHENA projection. Closure device was deployed with a 6 Fr Angio-Seal without any complications. The patient tolerated the procedure well and there were no complications associated with the procedure. cariac cath done with Left Radial approach, But PTCA of RCA attempted with RFA approach Vessel Analysis The patient's coronary anatomy is left dominant. The left main coronary artery is a medium size vessel with diffuse calcification noted throughout this vessel and without significant stenosis. The left main bifurcates to the left anterior descending and circumflex. The left anterior descending artery is a medium size vessel with diffuse calcification noted throughout this vessel and without significant stenosis. There is a 40% stenosis in the mid segment. The first diagonal branch is a medium size vessel with diffuse calcification noted throughout this vessel and without significant stenosis. The circumflex artery is a large size vessel with diffuse calcification noted throughout this vessel and without significant stenosis. The first obtuse marginal branch is a small size vessel with diffuse calcification noted throughout this vessel and without significant stenosis. The second obtuse marginal branch is a small size vessel with diffuse calcification noted throughout this vessel and without significant stenosis. The left posterior descending artery is a large size vessel with diffuse calcification noted throughout this vessel and without significant stenosis. The right coronary artery is a medium size vessel with diffuse calcification noted throughout this vessel and with significant stenosis. though it is non dominant artert There is a 100% stenosis in the proximal segment. with bridge collateralls Left Ventricle The left ventricle is normal in size with normal contractility. There was no cardiomyopathy. The left ventricular ejection fraction is estimated to be 55-60%. The left ventricular end diastolic pressure is 14-16 mmHg. There was no gradient across the aortic valve upon pullback. PCI Technique Lesion Anticoagulation was achieved with Heparin and integrellin bolluses. Percutaneous coronary intervention was performed on the proximal right coronary artery (attempted).. The lesion stenosis prior to intervention was 100% with MIGUELINA 1 flow. A 6 Fr JR 4 Guide Catheter was used to engage the ostium. A Luge 182 Interventional Guidewire was used to cross the lesion. BALLOON DILATION A Balloon catheter 2.0 x 10 mm Sprinter RX was inserted and inflated up to lalita for seconds. COMMENTS Un able to cross VASCULAR TECH as well as Poor Guide support. Conclusion Single Vessel RCA non Dominant !00% occlude with Bridge collateral (VASCULAR TECH) Mild to Moderate disease in Mid LAD Preserved Lv FX. EF-55-60%, [id number]_[id number]. PTCA of RCA attepmted unable to cross VASCULAR TECH ( chronic total Occlusion) and poor guide support, RCA is non Small artery. Recommendations Cardiac Rehabilitation Referral Aggressive Medical TherapyCardiac Risk Reduction Program Weight Loss Reduction Program continue elliquis 5 mg po BID from AM for A fib. CATARINO and cardioversion in 4 Weeks.as out pt. CC; Drs. Hernandez / Michael.
--- NOTE | 2018-08-02 16:24 | CP.PCM.DIS ---
<LioIlan green - Last Filed: 08/02/18 16:19> Provider - Provider Date of Admission: 07/31/18 17:24 Attending physician: Bill Villaseñor MD Consults: 07/30/18 15:06 Cardiology Consult Routine Comment: Consulting Provider: Regulo Rodriguez Consulting Physician: Regulo Rodriguez Reason for Consult: chest pain, new-onset afib 07/30/18 19:37 Case Management Referral Routine Comment: MIGHT NEED ASSISTANCE AT HOME Physician Instructions: Reason For Exam: EVALUATION Reason for Referral: Turbine Inspector Eval Inpatient ORDER PLANNER Core Measures Referral Routine Comment: Physician Instructions: Reason For Exam: EVALUATION Transition In Care/Readmission Reduction Routine Comment: Physician Instructions: Reason For Exam: EVALUATION Time Spent in preparation of Discharge (in minutes): 45 Diagnosis - Discharge Diagnosis (1) Atrial fibrillation, new onset Status: Acute (2) Hx of essential hypertension Status: Chronic (3) Chest pain Status: Resolved Hospital Course - Lab Results Lab Results: Most Recent Lab Values WBC 10.8 10^3/uL (4.5-11.0) 08/02/18 14:00 RBC 4.69 10^6/uL (3.5-6.1) 08/02/18 14:00 Hgb 14.1 g/dL (12.0-16.0) 08/02/18 14:00 Hct 42.5 % (36.0-48.0) 08/02/18 14:00 MCV 90.6 fl (80.0-105.0) 08/02/18 14:00 MCH 30.1 pg (25.0-35.0) 08/02/18 14:00 MCHC 33.2 g/dl (31.0-37.0) 08/02/18 14:00 RDW 13.8 % (11.5-14.5) 08/02/18 14:00 Plt Count 250 10^3/uL (120.0-450.0) 08/02/18 14:00 MPV 9.2 fl (7.0-11.0) 08/02/18 14:00 Gran % 68.2 % (50.0-68.0) H 08/02/18 14:00 Lymph % (Auto) 22.9 % (22.0-35.0) 08/02/18 14:00 Long % (Auto) 7.0 % (1.0-6.0) H 08/02/18 14:00 Eos % (Auto) 1.6 % (1.5-5.0) 08/02/18 14:00 Baso % (Auto) 0.3 % (0.0-3.0) 08/02/18 14:00 Gran # 7.40 (1.4-6.5) H 08/02/18 14:00 Lymph # (Auto) 2.5 (1.2-3.4) 08/02/18 14:00 Long # (Auto) 0.8 (0.1-0.6) H 08/02/18 14:00 Eos # (Auto) 0.2 (0.0-0.7) 08/02/18 14:00 Baso # (Auto) 0.03 K/mm3 (0.0-2.0) 08/02/18 14:00 PT 12.1 SECONDS (9.4-12.5) 08/02/18 06:00 INR 1.05 08/02/18 06:00 APTT 38.1 Seconds (25.1-36.5) H 08/02/18 06:00 Sodium 141 mmol/L (132-148) 08/02/18 14:00 Potassium 3.8 mmol/L (3.6-5.0) 08/02/18 14:00 Chloride 108 mmol/L (98-107) H 08/02/18 14:00 Carbon Dioxide 26 mmol/L (21-33) 08/02/18 14:00 Anion Gap 11 (10-20) 08/02/18 14:00 BUN 13 mg/dL (7-21) 08/02/18 14:00 Creatinine 0.7 mg/dl (0.7-1.2) 08/02/18 14:00 Est GFR ( Amer) > 60 08/02/18 14:00 Est GFR (Non-Af Amer) > 60 08/02/18 14:00 POC Glucose (mg/dL) 99 mg/dL (65-110) 08/02/18 11:38 Random Glucose 141 mg/dL (70-110) H 08/02/18 14:00 Hemoglobin A1c 6.9 % (4.2-6.5) H 07/31/18 06:00 Calcium 8.7 mg/dL (8.4-10.5) 08/02/18 14:00 Phosphorus 4.7 mg/dL (2.5-4.5) H 08/02/18 06:00 Magnesium 2.1 mg/dL (1.7-2.2) 08/02/18 06:00 Total Bilirubin 0.6 mg/dL (0.2-1.3) 08/02/18 06:00 AST 37 U/L (14-36) H 08/02/18 06:00 ALT 40 U/L (7-56) 08/02/18 06:00 Alkaline Phosphatase 85 U/L (38-126) 08/02/18 06:00 Lactate Dehydrogenase 424 U/L (333-699) 07/30/18 19:27 Total Creatine Kinase 54 U/L (35-230) 07/30/18 19:27 Troponin I < 0.01 ng/mL 07/31/18 09:23 NT-Pro-B Natriuret Pep 433 pg/mL (0-450) 07/30/18 10:42 Total Protein 7.3 g/dL (5.8-8.3) 08/02/18 06:00 Albumin 4.2 g/dL (3.0-4.8) 08/02/18 06:00 Globulin 3.1 gm/dL 08/02/18 06:00 Albumin/Globulin Ratio 1.4 (1.1-1.8) 08/02/18 06:00 Triglycerides 151 mg/dL (35-160) 07/31/18 06:00 Cholesterol 186 mg/dL (130-200) 07/31/18 06:00 LDL Cholesterol Direct 142 mg/dL (0-129) H 07/31/18 06:00 HDL Cholesterol 33 mg/dL (29-60) 07/31/18 06:00 TSH 3rd Generation 0.82 mIU/mL (0.46-4.68) 07/31/18 06:00 Urine Color Yellow (YELLOW) 08/01/18 11:45 Urine Appearance Clear (CLEAR) 08/01/18 11:45 Urine pH 6.0 (4.7-8.0) 08/01/18 11:45 Ur Specific [place] 1.020 (1.005-1.035) 08/01/18 11:45 Urine Protein Negative mg/dL (<30 mg/dL) 08/01/18 11:45 Urine Glucose (UA) Negative mg/dL (NEGATIVE) 08/01/18 11:45 Urine Ketones Negative mg/dL (NEGATIVE) 08/01/18 11:45 Urine Blood Negative (NEGATIVE) 08/01/18 11:45 Urine Nitrate Negative (NEGATIVE) 08/01/18 11:45 Urine Bilirubin Negative (NEGATIVE) 08/01/18 11:45 Urine Urobilinogen 0.2 E.U./dL (<1 E.U./dL) 08/01/18 11:45 Ur Leukocyte Esterase Moderate Meena/uL (NEGATIVE) H 08/01/18 11:45 Urine RBC 0 - 2 /hpf (0-2) 08/01/18 11:45 Urine WBC 20 - 25 /hpf (0-6) H 08/01/18 11:45 Ur Epithelial Cells 6 - 8 /hpf (0-5) H 08/01/18 11:45 Amorphous Sediment Few /hpf (NONE) 08/01/18 11:45 Urine Bacteria Many /hpf (NONE) 08/01/18 11:45 Urine Other Uyeast /hpf 08/01/18 11:45 - Hospital Course Hospital Course: HPI at time of admission: "83 y o female with PMhx HTN (on Norvasc therapy) who presents to the ED today c/o new-onset L-sided chest pain worsening since yesterday evening. Denies any inciting factors or hx of this occurring before. Notes nothing makes the chest pain better or worse. Did not take any pain medications at home or ASA for symptoms. Localizes pain to L side of chest without radiation to L arm or neck. Describes pain as sharp and constant. Notes associated mild shortness of breath worsened with exertion. Denies fever, chills, palpitations, n/v/d/c, abd pain, urinary complaints, leg claudication/edema, or other symptoms." Hospital Course: Pertinent imaging: Echo 07/31: mild concentric LVH, EF 54%, L and R atria mildly dilated, aortic valve shows moderate stenosis, trace aortic regurgitation, mitral valve leaflets thickened, mild mitral regurgitation, mod tricuspid regurgitation, mod pulm HTN Stress test 07/31: area of moderate decreased perfusion involving mid to basal anterior wall EKG on admission demonstrates irregular rhythm at [address], no acute [address]-t wave changes appreciated Repeat EKG 07/31 demonstrates irregular rhythm at 90 bpm, prolonged QT CXR neg on admission Cardiac cath 08/02: Nondominant right 100% with a bridge collateral unable to cross Pt was found to be in new-onset atrial fibrillation with RVR. Cardiology was consulted (Dr. Rodriguez), who recommended echo, stress test, and cardiac cath as part of work-up. Pt was rate controlled on Amiodarone and Verapamil. Pt was started on Eliquis as oral anticoagulation. Chest pain resolved during admission, pt was able to ambulate without concerns, was discharged to home in stable condition on 08/02/18. Trops neg x3. Instructed to f/u with PMD and Cardiology after discharge. was given scripts for new medications for A-fib started during admission. For further details of admission, please refer to hospital EMR. Discharge Exam - Head Exam Head Exam: NORMAL INSPECTION, NORMOCEPHALIC - Eye Exam Eye Exam: EOMI, Normal appearance, PERRL - ENT Exam ENT Exam: Mucous Membranes Moist - Respiratory Exam Respiratory Exam: Clear to PA & Lateral, NORMAL BREATHING PATTERN, UNREMARKABLE. absent: Rales, Rhonchi, Wheezes - Cardiovascular Exam Cardiovascular Exam: Irregular Rhythm, +S1, +S2. absent: Gallop, Rubs, Systolic Murmur - GI/Abdominal Exam GI & Abdominal Exam: Normal Bowel Sounds, Soft, Unremarkable. absent: Distended, Organomegaly, Tenderness - Extremities Exam Extremities exam: full ROM, normal capillary refill, normal inspection, pedal pulses present - Neurological Exam Neurological exam: Alert, CN II-XII Intact, Normal Gait, Oriented x3, Reflexes Normal - Psychiatric Exam Psychiatric exam: Normal Affect, Normal Mood - Skin Skin Exam: Dry, Intact, Normal Color, Warm Discharge Plan - Discharge Medications Prescriptions: Amiodarone [Cordarone] 200 mg PO DAILY #30 tab Apixaban [Eliquis] 5 mg PO BID #60 tab Atorvastatin [Lipitor] 20 mg PO DIN #30 tab Cefpodoxime [Vantin] 200 mg PO Q12 #6 tab Verapamil [Calan Tab] 40 mg PO TID #90 tab - Follow Up Plan Condition: FAIR Disposition: HOME/ ROUTINE Instructions: Atrial Fibrillation (DC) Additional Instructions: Please follow up with your primary care doctor, Dr. Hernandez, within 3-5 days of discharge. Please follow up with Dr. Rodriguez, your charge entry, within 1 week of discharge. Your new medications are as follows: 1. Aspirin 81mg DAILY (cardiac risk reduction) - PLEASE START MEDICATION TOMORROW MORNING on Monday08/03/18 2. Eliquis 5mg ONE PILL IN MORNING AND ONE AT NIGHT (Blood thinner to reduce risk of blood clot) - PLEASE START MEDICATION TOMORROW MORNING on Monday08/03/18 3. Lipitor 20mg DAILY (For cholesterol) 4. Amiodarone 200mg DAILY (For heart rate) 5. Verapamil 40mg EVERY 8 HOURS ( For heart rate) 6. Vantin 200mg ONE PILL IN MORNING AND ONE AT NIGHT for 3 days (Antibiotic for urinary tract infection) These medications were sent to [facility] in [place] STOP TAKING: Amlodipine 5mg DAILY If your symptoms return, please go to the nearest emergency department. Referrals: Regulo Johsnon MD [Staff Provider] - Nely Almazan MD [Family Provider] - <Bill Villaseñor - Last Filed: 08/03/18 15:58> Provider - Provider Date of Admission: 07/31/18 17:24 Attending physician: Bill Villaseñor MD Consults: 07/30/18 15:06 Cardiology Consult Routine Comment: Consulting Provider: Regulo Rodriguez Consulting Physician: Regulo Rodriguez Reason for Consult: chest pain, new-onset afib 07/30/18 19:37 Case Management Referral Routine Comment: MIGHT NEED ASSISTANCE AT HOME Physician Instructions: Reason For Exam: EVALUATION Reason for Referral: Turbine Inspector Eval Inpatient ORDER PLANNER Core Measures Referral Routine Comment: Physician Instructions: Reason For Exam: EVALUATION Transition In Care/Readmission Reduction Routine Comment: Physician Instructions: Reason For Exam: EVALUATION Hospital Course - Lab Results Lab Results: Micro Results 08/01/18 23:22 Urine,Clean Catch Urine Culture - Final No Growth (<1,000 CFU/ML) Most Recent Lab Values WBC 10.8 10^3/uL (4.5-11.0) 08/02/18 14:00 RBC 4.69 10^6/uL (3.5-6.1) 08/02/18 14:00 Hgb 14.1 g/dL (12.0-16.0) 08/02/18 14:00 Hct 42.5 % (36.0-48.0) 08/02/18 14:00 MCV 90.6 fl (80.0-105.0) 08/02/18 14:00 MCH 30.1 pg (25.0-35.0) 08/02/18 14:00 MCHC 33.2 g/dl (31.0-37.0) 08/02/18 14:00 RDW 13.8 % (11.5-14.5) 08/02/18 14:00 Plt Count 250 10^3/uL (120.0-450.0) 08/02/18 14:00 MPV 9.2 fl (7.0-11.0) 08/02/18 14:00 Gran % 68.2 % (50.0-68.0) H 08/02/18 14:00 Lymph % (Auto) 22.9 % (22.0-35.0) 08/02/18 14:00 Long % (Auto) 7.0 % (1.0-6.0) H 08/02/18 14:00 Eos % (Auto) 1.6 % (1.5-5.0) 08/02/18 14:00 Baso % (Auto) 0.3 % (0.0-3.0) 08/02/18 14:00 Gran # 7.40 (1.4-6.5) H 08/02/18 14:00 Lymph # (Auto) 2.5 (1.2-3.4) 08/02/18 14:00 Long # (Auto) 0.8 (0.1-0.6) H 08/02/18 14:00 Eos # (Auto) 0.2 (0.0-0.7) 08/02/18 14:00 Baso # (Auto) 0.03 K/mm3 (0.0-2.0) 08/02/18 14:00 PT 12.1 SECONDS (9.4-12.5) 08/02/18 06:00 INR 1.05 08/02/18 06:00 APTT 38.1 Seconds (25.1-36.5) H 08/02/18 06:00 Sodium 141 mmol/L (132-148) 08/02/18 14:00 Potassium 3.8 mmol/L (3.6-5.0) 08/02/18 14:00 Chloride 108 mmol/L (98-107) H 08/02/18 14:00 Carbon Dioxide 26 mmol/L (21-33) 08/02/18 14:00 Anion Gap 11 (10-20) 08/02/18 14:00 BUN 13 mg/dL (7-21) 08/02/18 14:00 Creatinine 0.7 mg/dl (0.7-1.2) 08/02/18 14:00 Est GFR ( Amer) > 60 08/02/18 14:00 Est GFR (Non-Af Amer) > 60 08/02/18 14:00 POC Glucose (mg/dL) 99 mg/dL (65-110) 08/02/18 11:38 Random Glucose 141 mg/dL (70-110) H 08/02/18 14:00 Hemoglobin A1c 6.9 % (4.2-6.5) H 07/31/18 06:00 Calcium 8.7 mg/dL (8.4-10.5) 08/02/18 14:00 Phosphorus 4.7 mg/dL (2.5-4.5) H 08/02/18 06:00 Magnesium 2.1 mg/dL (1.7-2.2) 08/02/18 06:00 Total Bilirubin 0.6 mg/dL (0.2-1.3) 08/02/18 06:00 AST 37 U/L (14-36) H 08/02/18 06:00 ALT 40 U/L (7-56) 08/02/18 06:00 Alkaline Phosphatase 85 U/L (38-126) 08/02/18 06:00 Lactate Dehydrogenase 424 U/L (333-699) 07/30/18 19:27 Total Creatine Kinase 54 U/L (35-230) 07/30/18 19:27 Troponin I < 0.01 ng/mL 07/31/18 09:23 NT-Pro-B Natriuret Pep 433 pg/mL (0-450) 07/30/18 10:42 Total Protein 7.3 g/dL (5.8-8.3) 08/02/18 06:00 Albumin 4.2 g/dL (3.0-4.8) 08/02/18 06:00 Globulin 3.1 gm/dL 08/02/18 06:00 Albumin/Globulin Ratio 1.4 (1.1-1.8) 08/02/18 06:00 Triglycerides 151 mg/dL (35-160) 07/31/18 06:00 Cholesterol 186 mg/dL (130-200) 07/31/18 06:00 LDL Cholesterol Direct 142 mg/dL (0-129) H 07/31/18 06:00 HDL Cholesterol 33 mg/dL (29-60) 07/31/18 06:00 TSH 3rd Generation 0.82 mIU/mL (0.46-4.68) 07/31/18 06:00 Urine Color Yellow (YELLOW) 08/01/18 11:45 Urine Appearance Clear (CLEAR) 08/01/18 11:45 Urine pH 6.0 (4.7-8.0) 08/01/18 11:45 Ur Specific [place] 1.020 (1.005-1.035) 08/01/18 11:45 Urine Protein Negative mg/dL (<30 mg/dL) 08/01/18 11:45 Urine Glucose (UA) Negative mg/dL (NEGATIVE) 08/01/18 11:45 Urine Ketones Negative mg/dL (NEGATIVE) 08/01/18 11:45 Urine Blood Negative (NEGATIVE) 08/01/18 11:45 Urine Nitrate Negative (NEGATIVE) 08/01/18 11:45 Urine Bilirubin Negative (NEGATIVE) 08/01/18 11:45 Urine Urobilinogen 0.2 E.U./dL (<1 E.U./dL) 08/01/18 11:45 Ur Leukocyte Esterase Moderate Meena/uL (NEGATIVE) H 08/01/18 11:45 Urine RBC 0 - 2 /hpf (0-2) 08/01/18 11:45 Urine WBC 20 - 25 /hpf (0-6) H 08/01/18 11:45 Ur Epithelial Cells 6 - 8 /hpf (0-5) H 08/01/18 11:45 Amorphous Sediment Few /hpf (NONE) 08/01/18 11:45 Urine Bacteria Many /hpf (NONE) 08/01/18 11:45 Urine Other Uyeast /hpf 08/01/18 11:45 Attending/Attestation - Attestation I have personally seen and examined this patient.: Yes I have fully participated in the care of the patient.: Yes I have reviewed all pertinent clinical information, including history, physical exam and plan: Yes Notes (Text): 08/03/18 14:34 Attending note; Patient seen and examined with resident. Patient is alert and awake. Status post cardiac cath. Left wrist area clean. No bleeding noted. Denies any chest pain, shortness of breath. Patient is a 83 year old female with PMH of HTN presented with Chest pain and SOB found to have new onset A.fib. with RVR. Responded to IV cardizem in the ED. Cardiac cath showed Nondominant right 100% with a bridge collateral unable to cross A. fib; rate controlled. Cardiology evaluation appreciated. continue Amiodarone and Verapamil. Pt was started on Eliquis as oral anticoagulation. Patient will be discharged home today. Follow-up with PMD Dr. Hernandez. Follow-up with cardiology Dr. Johnson. The diagnosis, follow-up plan discussed with patient in detail.
[2018-08-02 18:34] VITALS: RESP 20
[2018-08-02 18:35] VITALS: BP 128/72; PULSE 91; TEMP 98.6
--- NOTE | 2018-08-02 20:24 | CARD ---
APPROVED REPORT Date of service: 08/02/2018 EKG Measurement Heart [id number] <Conclusion> Atrial fibrillation Prolonged QT Abnormal ECG
[2018-08-03] MEDS ORDERED: Cefpodoxime (Vantin) 200 mg Tab PO SCH (10:00)
== END 2018-08-02 18:31 | disposition home or self-care (01) | DRG 287 ==
LOC: ED 09:53 → ERH 11:42 → 2RNO 15:05 → OBSVTOIN 07-31 17:24 → 2RSO 08-02 09:10
PROVIDERS: ADMIT Internal Medicine; ATTEND Internal Medicine
PROC: 4A023N8 Measurement of Cardiac Sampling and Pressure, Bilateral, Percutaneous Approach (ICD-10-PCS; principal; 2018-08-02)
PROC: B2111ZZ Fluoroscopy of Multiple Coronary Arteries using Low Osmolar Contrast (ICD-10-PCS; 2018-08-02)
PROC: B2151ZZ Fluoroscopy of Left Heart using Low Osmolar Contrast (ICD-10-PCS; 2018-08-02)
DX: I48.91 Unspecified atrial fibrillation (principal); R07.89 Other chest pain; I10 Essential (primary) hypertension; I27.20 Pulmonary hypertension, unspecified; E66.9 Obesity, unspecified; Z68.35 Body mass index [BMI] 35.0-35.9, adult; Z85.3 Personal history of malignant neoplasm of breast; D72.829 Elevated white blood cell count, unspecified; E78.5 Hyperlipidemia, unspecified; I73.9 Peripheral vascular disease, unspecified; Z79.01 Long term (current) use of anticoagulants; Z79.82 Long term (current) use of aspirin; I08.3 Combined rheumatic disorders of mitral, aortic and tricuspid valves; R94.39 Abnormal result of other cardiovascular function study

== ENCOUNTER 2018-08-30 09:31 | Day surgery (SDC) | payer MEDICARE ==
[2018-08-22 11:23] VITALS: BMI 35.2
[2018-08-30] MEDS ORDERED: Naloxone 0.4 mg/ml Inj (Adult) ONE (11:07)
[2018-08-30] MEDS ORDERED: Midazolam 2 MG/2 ML VIAL ONE (11:07)
[2018-08-30] MEDS ORDERED: Flumazenil 0.1 mg/ml Inj (5ml) IVP ONE (11:08)
[2018-08-30] MEDS ORDERED: Midazolam 2 MG/2 ML VIAL IV ONE ×4 (11:10→11:31)
[2018-08-30] MEDS ORDERED: Sodium Chloride 0.9% 1,000 ML IV SCH (12:00)
[2018-08-30 13:04] VITALS: PULSE 68; RESP 20; TEMP 98; O2SAT 92
--- NOTE | 2018-08-30 13:48 | CARD ---
APPROVED REPORT Date of service: 08/30/2018 EXAM: Transesophageal echocardiogram with color flow Doppler and Synchronized Cardioversion. INDICATION Atrial Fibrillation 2D DIMENSIONS LVOT Diameter1.8 (1.8-2.4cm) M-Mode DIMENSIONS Aortic Cusp Exc.0.70 (1.5-2.0cm) Aortic Valve AoV Peak Oyxfmchm179.0cm/Andrew Peak GR.20mmHgLVOT Peak Fpgobdfi54.1cm/s LVOT VTI13.60cm Mitral Valve E/A ratio0.0 TDI E/Lateral E'0.0E/Medial E'0.0 Tricuspid Valve TR Peak [id number]/sRAP [id number] Peak Gr.68mmHg [id number] Reason For Test : Catarino and cardioversion PROCEDURE After obtaining informed consent, patient underwent transesophageal echo in the Echo Lab. Type of Sedation : Conscious Sedation Sedation was administered by Dr. cooley. Sedation was achieved with Versed and fentanyl 3.5 mg and 100 mcg intravenously. Transesophageal probe was inserted and advanced into esophagus without difficulty. Echo enhancement indication: R/O Septal defect. Echo enhancement agent administered: Agitated Saline The CATARINO was performed without complications. Synchronized Cardioversion attempted: Successful Synchronized Cardioversion acheived with 200 Joules after First attempt(s). Rhythm following Synchronized Cardioversion: Throughout the procedure, the blood pressure, pulse oximetry, cardiac rhythm, and rate were monitored. The patient tolerated the procedure without adverse effects. Recovery from conscious sedation was uneventful and vital signs were stable. LEFT VENTRICLE The left ventricle is normal size. There is mild left ventricular hypertrophy. The left ventricular function is normal.EF-55-60% ( A fib) There is normal LV segmental wall motion. pt. was in A fib No left ventricle thrombus noted on this study. There is no ventricular septal defect visualized. There is no left ventricular aneurysm. There is no mass noted in the left ventricle. RIGHT VENTRICLE The right ventricle is normal size. There is normal right ventricular wall thickness. The right ventricular systolic function is normal. ATRIA The left atrium is moderately dilated. The right atrium is mildly dilated. The interatrial septum is intact with no evidence for an atrial septal defect, By color flow and bubble study. AORTIC VALVE The aortic valve is calcified and displays decreased opening. There is mild to moderate aortic regurgitation. There is mild to moderate valvular aortic stenosis., By plannimetry ERNESTINA 1.3 cm2, peak gradient-20 mmoof Hg. There is no aortic valvular vegetation. MITRAL VALVE Mitral annular calcification is mild. The mitral valve leaflets are thickened. There is no evidence of mitral valve prolapse. There is no mitral valve stenosis. Mitral regurgitation is mild to moderate. TRICUSPID VALVE The tricuspid valve leaflets display thickening. There is severe tricuspid regurgitation.RVSP-78 mmof Hg. There is severe pulmonary hypertension. There is no tricuspid valve prolapse or vegetation. There is no tricuspid valve stenosis. PULMONIC VALVE The pulmonic valve is mildly thickened. There is trace pulmonic valvular regurgitation. There is no pulmonic valvular stenosis. GREAT VESSELS The aortic root is normal in size. The ascending aorta is normal in size. The pulmonary artery is normal. The IVC is normal in size and collapses >50% with inspiration. PERICARDIAL EFFUSION There is no pericardial effusion. There is no pleural effusion. <Conclusion> The left ventricle is normal size. The left ventricular function is normal.EF-55-60% ( A fib) The interatrial septum is intact with no evidence for an atrial septal defect, By color flow and bubble study. There is mild to moderate aortic regurgitation. There is mild to moderate valvular aortic stenosis., By plannimetry ERNESTINA 1.3 cm2, peak gradient-20 mmoof Hg. Mitral regurgitation is mild to moderate. There is severe tricuspid regurgitation.RVSP-78 mmof Hg. There is severe pulmonary hypertension. The IVC is normal in size and collapses >50% with inspiration. There is no pleural effusion. No thrombus noted. Velocity in JEAN more than 0.4 m/s Mild Flat plaque in descending aorta noted. No contra indication to cardioversion, 200 Joules synchronized Cardioversion done pt converted to NSR. But no significant Gradient ( no significant ) by Cariac cath. CC; Florecita. David/ elena.
[2018-08-30 15:06] VITALS: BP 136/74
--- NOTE | 2018-08-30 18:27 | CARD ---
APPROVED REPORT Date of service: 08/30/2018 EKG Measurement Heart [id number] <Conclusion> Atrial fibrillation Nonspecific ST and T wave abnormality, probably digitalis effect Abnormal ECG
--- NOTE | 2018-08-30 19:04 | CARD ---
APPROVED REPORT Date of service: 08/30/2018 EKG Measurement Heart [id number] <Conclusion> Sinus rhythm with 1st degree AV block Prolonged QT Abnormal ECG
== END 2018-08-30 14:30 | disposition home or self-care (01) ==
LOC: TEE 09:31 → EDSTATUS 11:00 → TEE 14:30
PROVIDERS: ATTEND Internal Medicine
DX: I48.91 Unspecified atrial fibrillation (principal); I10 Essential (primary) hypertension; I25.10 Atherosclerotic heart disease of native coronary artery without angina pectoris; I08.0 Rheumatic disorders of both mitral and aortic valves; I27.20 Pulmonary hypertension, unspecified; I44.0 Atrioventricular block, first degree; I70.0 Atherosclerosis of aorta
CPT/HCPCS: 92960; 93005; 93312; J2250; J3010; J7030